=== PATIENT | female | born 1960 | race Caucasian/White ===

== ENCOUNTER 2020-05-26 16:52 | Emergency (ER) | payer OTHER, SELFPAY ==
--- NOTE | ~2020-05-26 | XR_ITS ---
EXAMINATION: XR ankle RT min 3V INDICATION: Right ankle pain TECHNIQUE: Four views of the right ankle are obtained. COMPARISON: None available FINDINGS: There is ankle soft tissue swelling. Bone alignment is normal. There is no fracture. A dors al calcaneal enthesophyte is noted. IMPRESSION: 1. Ankle soft tissue swelling without acute osseous abnormality. Reviewed, dictated and finalized at location B.
--- NOTE | ~2020-05-26 | XR_ITS ---
EXAMINATION: XR foot RT min 3V DATE: 05/26/2020 17:27 INDICATION: Lateral foot pain TECHNIQUE: Dorsoplantar, lateral, and 2 oblique views of the right foot were obtained. COMPARISON: None. FINDINGS: There is soft tissue swelling of the ankle. Bone alignment is normal. There is a questionab le cortical disruption at the lateral base of the fifth metatarsal. 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 A calcaneal enthesophyte is noted. IMPRESSION: 1. Possible nondisplaced fracture at the base of the fifth metatarsal. Reviewed, dictated and finalized at location B.
[2020-05-26 16:56] VITALS: BP 178/68; PULSE 64; RESP 16; TEMP 36.8; O2SAT 97
--- NOTE | 2020-05-26 17:04 | ED.GENADULT ---
HPI - General Adult General Chief complaint: Extremity Injury, Lower Stated complaint: Right ankle injury Time Seen by Provider: 05/26/20 17:04 Source: patient Mode of arrival: ambulatory Limitations: no limitations History of Present Illness HPI narrative: 59-year-old female patient presents to the [facility] with complaints of right foot and ankle pain for the past 5 days. Patient states this this past Friday she went for a hike and fell down a hill. Patient states she was trying to climb up the hill and fell down again. Patient states that since then she has been having pain to the right foot and ankle along with significant swelling. Patient states she has been icing and taking ibuprofen but denies wrapping it. Patient states she only elevates it after work. 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 Related Data Home Medications Medication Instructions Recorded Confirmed No Home Medications 05/26/20 05/26/20 Allergies Allergy/AdvReac Type Severity Reaction Status Date / Time Penicillins Allergy Intermediate Hives Verified 05/26/20 17:15 Review of Systems Review of Systems: Narrative: CONSTITUTIONAL: Denies fever, chills, or sweats. EYES: Denies visual changes, redness, or discharge. ENT: Denies rhinorrhea, congestion, sore throat, or otalgia. CARDIOVASCULAR: Denies chest pain, palpitations, or edema. RESPIRATORY: Denies cough or dyspnea. GASTROINTESTINAL: Denies abdominal pain, nausea, vomiting, or diarrhea. GENITOURINARY: Denies dysuria or hematuria. SKIN: Denies rash or itching. MUSCULOSKELETAL: Denies back pain, joint pain, or myalgia. Positive right foot and ankle pain NEUROLOGIC: Denies headache, numbness, or weakness. PSYCHIATRIC: Denies anxiety or depression. [facility] Past Medical History Medical History (Updated 05/26/20 @ 17:51 by HENRIQUE Miranda) Hypertension Surgical History Surgical History (Updated 05/26/20 @ 17:08 by HENRIQUE Miranda) H/O breast biopsy Comments At the time of my signature I agree with nursing past medical history, surgical, social, and family history. There is no relevant family history pertinent to the presenting complaint. Exam Narrative: Exam Narrative: GENERAL: Well-appearing, well-nourished, and in no acute distress. HEAD: Normocephalic, atraumatic. EYES: PERRLA and EOMI. ENT: Nares clear, no rhinorrhea or epistaxis. Mucous membranes moist. NECK: Supple. No lymphadenopathy CHEST: Clear to auscultation. No respiratory distress. HEART: Regular rate and rhythm. No murmur heard. Normal peripheral pulses. ABDOMEN: Soft, nontender, nondistended, normal active bowel sounds. EXTREMITIES: Patient able to bear weight and ambulate but has increased pain to the right foot and ankle. No surface trauma, ecchymosis, erythema, lesions, ulcers or break in skin integrity. There is slight bruising noted at the base of the third and fourth metatarsals. There is significant swelling and 2+ pitting edema. The edema extends all the way up to the knee. The R foot is without obvious asymmetry or deformity when compared to the L foot. No bony step-off, tender to palpation over the third and fourth metatarsal/toes, no tenderness noted over the midfoot or hindfoot or sole. Tenderness noted to the lateral malleolus area. Normal plantar/dorsiflexion, inversion/eversion. Distal motor and neurovascular status are intact SKIN: Warm, dry, no rash. NEURO: No focal deficits. Alert and oriented x3. Course Reevaluation(s) Reevaluation #1: Reevaluated patient and notified her that the x-ray does show possible fracture at the base of the fifth metatarsal. Discussed with patient we are can go ahead and put her in an Ortho shoe as well as wrap her foot and leg with an Demetrio wrap to help with the swelling. Discussed with her she needs to keep the foot and leg elevated as much as possible. She may take Tylenol and ibuprofen for pain and follow-up with orthopedic surge
== END 2020-05-26 17:55 | disposition home or self-care (01) ==
PROVIDERS: Emergency Provider Nurse Practitioner Family; PCP Internal Medicine
DX: S92.354A Nondisplaced fracture of fifth metatarsal bone, right foot, initial encounter for closed fracture (principal); W17.81XA Fall down embankment (hill), initial encounter; Y93.01 Activity, walking, marching and hiking; I10 Essential (primary) hypertension
CPT/HCPCS: 73610; 73630; 99214; G0463

== ENCOUNTER 2021-12-20 18:23 | Emergency (ER) | payer OTHER, SELFPAY ==
--- NOTE | ~2021-12-20 | XR_ITS ---
EXAMINATION: XR chest 2V DATE: 12/20/2021 18:55 INDICATION: Cough. Decreased lung sounds. TECHNIQUE: Frontal and lateral views of the chest were obtained. COMPARISON: None. FINDINGS: There is no pneumonia, pleural effusion, pneumothorax. Cardiomegaly is noted. IMPRESSION: 1. Cardiomegaly. Reviewed, dictated and finalized at location A. [employer] IMPRESSION: 1. Cardiomegaly.
[2021-12-20 18:26] VITALS: BP 189/81; PULSE 67; RESP 20; TEMP 36.7; O2SAT 98
--- NOTE | 2021-12-20 18:26 | ED.URI ---
HPI - URI/Sore Throat General Chief Complaint: Upper Respiratory Infection Stated Complaint: sore throat, dry cough Time Seen by Provider: 12/20/21 18:26 Source: patient and RN notes reviewed History of Present Illness HPI Narrative: patient is a 61-year-old female who presents to the Urgent Care with complaints of sore throat and dry cough. Patient denies any fever, nausea, vomiting. States that she has postnasal drainage and headache. States that her sore throat was worse when she woke up this morning and has since improved. Patient states her symptoms started on Friday. She has been taking Tylenol, DayQuil, ibuprofen. No other acute complaints. No acute distress noted. Patient aware of the plan of care. Some parts of this dictation were generated by voice recognition software and may contain typographical and/or grammatical inaccuracies. Related Data Home Medications Medication Instructions Recorded Confirmed rosuvastatin 10 mg tablet 10 mg PO DAILY 12/20/21 12/20/21 Allergies Allergy/AdvReac Type Severity Reaction Status Date / Time Penicillins Allergy Intermediate Hives Verified 12/20/21 18:24 Review of Systems Review of Systems: CONSTITUTIONAL: Denies fever, chills, or sweats. EYES: Denies visual changes, redness, or discharge. ENT: Reports of sinus congestion, postnasal drainage and sore throat CARDIOVASCULAR: Denies chest pain, palpitations, or edema. RESPIRATORY: reports of cough without dyspnea GASTROINTESTINAL: Denies abdominal pain, nausea, vomiting, or diarrhea. GENITOURINARY: Denies dysuria or hematuria. SKIN: Denies rash or itching. MUSCULOSKELETAL: Denies back pain, joint pain, or myalgia. NEUROLOGIC: Denies headache, numbness, or weakness. All other systems reviewed are negative, except as documented in HPI. [facility] Past Medical History Medical History (Updated 12/20/21 @ 19:03 by HENRIQUE Ha) Hypertension Surgical History Surgical History (System 08/22/20 @ 08:40 by Sara Mc) H/O breast biopsy Comments At the time of my signature, I reviewed and agree with the nursing past medical, surgical, social, and family history. There is no relevant family history pertinent to the patient complaint. Exam Narrative: GENERAL: This is a well-nourished, well-developed patient, in no apparent distress. HEAD: normocephalic, atraumatic. EYES: PERRL. Sclera clear/white. Vision is grossly intact. EARS: External ears normal, auditory canals clear and without drainage, TMs normal without perforation. Hearing grossly intact. NOSE: External nose normal with no obvious nasal discharge. Mild bilateral erythema nares with clear to yellow rhinorrhea THROAT: Mucous membranes moist, posterior pharynx clear. moderate postnasal drainage NECK: Neck supple CARDIOVASCULAR: Regular rate and rhythm without murmurs, gallops, or rubs. RESPIRATORY: Clear to auscultation. diminished left lower lobe SKIN: warm, intact with no suspicious lesions or rash, good texture and turgor. NEURO: awake, alert, and oriented to person, place and time. There were no obvious focal neurologic abnormalities. EXTREMITIES: No clubbing, cyanosis, or edema. Course Course Level of Care: Express Care Visit Vital Signs Vital signs: Vital Signs Temperature 98.1 F 12/20/21 18:26 Pulse Rate 67 12/20/21 18:26 Respiratory Rate 20 12/20/21 18:26 Blood Pressure 189/81 H 12/20/21 18:26 Pulse Oximetry 98 12/20/21 18:26 Oxygen Delivery Room Air 12/20/21 18:26 Temperature 98.1 F 12/20/21 18:26 Pulse Rate 67 12/20/21 18:26 Respiratory Rate 20 12/20/21 18:26 Blood Pressure 189/81 H 12/20/21 18:26 Pulse Oximetry 98 12/20/21 18:26 Oxygen Delivery Room Air 12/20/21 18:26 reviewed- Patient is informed that they may have pre-hypertension or hypertension based on a blood pressure reading in the department. I recommend the patient call the primary care provider listed on their
== END 2021-12-20 19:05 | disposition home or self-care (01) ==
PROVIDERS: Emergency Provider Nurse Practitioner Family; PCP Internal Medicine
DX: J40 Bronchitis, not specified as acute or chronic (principal); I10 Essential (primary) hypertension
CPT/HCPCS: 71046; 99213; G0463

== ENCOUNTER 2022-08-21 09:41 | Emergency (ER) | payer OTHER, SELFPAY ==
--- NOTE | 2022-08-21 09:42 | ED.FEMALEGU ---
HPI - Female Genitourinary General Chief complaint: Urogenital-Female Stated complaint: Poss UTI Time Seen by Provider: 08/21/22 09:42 Source: patient and RN notes reviewed History of Present Illness HPI Narrative: Patient is a 62-year-old female presents to urgent care with complaints of urinary urgency and frequency that started last night. Patient states symptoms are now resolved. Patient denies any hematuria, nausea, vomiting, abdominal pain or flank pain. Patient does not have recent recurrent UTIs. Patient is currently asymptomatic. Patient states that she did take Tylenol last night. No other acute complaints. No acute distress noted. Patient aware of the plan of care. Some parts of this dictation were generated by voice recognition software and may contain typographical and/or grammatical inaccuracies. Related Data Home Medications Medication Instructions Recorded Confirmed rosuvastatin 10 mg tablet 10 mg PO DAILY 12/20/21 08/21/22 Allergies Allergy/AdvReac Type Severity Reaction Status Date / Time bacitracin Allergy Intermediate Rash Verified 08/21/22 10:07 [From Neosporin ([id number])] neomycin Allergy Intermediate Rash Verified 08/21/22 10:07 [From Neosporin ([id number])] Penicillins Allergy Intermediate Hives Verified 08/21/22 10:06 polymyxin B Allergy Intermediate Rash Verified 08/21/22 10:07 [From Neosporin ([id number])] Review of Systems Review of Systems: CONSTITUTIONAL: Denies fever, chills, or sweats. EYES: Denies visual changes, redness, or discharge. ENT: Denies rhinorrhea, congestion, sore throat, or otalgia. CARDIOVASCULAR: Denies chest pain, palpitations, or edema. RESPIRATORY: Denies cough or dyspnea. GASTROINTESTINAL: Denies abdominal pain, nausea, vomiting, or diarrhea. GENITOURINARY: Recent urgency and frequency which has since resolved SKIN: Denies rash or itching. MUSCULOSKELETAL: Denies back pain, joint pain, or myalgia. NEUROLOGIC: Denies headache, numbness, or weakness. All other systems reviewed are negative, except as documented in HPI. [facility] Past Medical History Medical History (Updated 08/21/22 @ 10:35 by HENRIQUE Ha) Hypertension Surgical History Surgical History (System 08/22/20 @ 08:40 by Sara Mc) H/O breast biopsy Comments At the time of my signature, I reviewed and agree with the nursing past medical, surgical, social, and family history. There is no relevant family history pertinent to the patient complaint. Exam Narrative: GENERAL: This is a well-nourished, well-developed patient, in no apparent distress. HEAD: normocephalic, atraumatic. EYES: PERRL. Sclera clear/white. Vision is grossly intact. EARS: External ears normal NOSE: External nose normal with no obvious nasal discharge, nares without redness, no rhinorrhea. THROAT: Mucous membranes moist NECK: Neck supple, GASTROINTESTINAL: Abdomen soft, non-tender, nondistended. SKIN: warm, intact with no suspicious lesions or rash, good texture and turgor. NEURO: awake, alert, and oriented to person, place and time. There were no obvious focal neurologic abnormalities. EXTREMITIES: No clubbing, cyanosis, or edema. BACK: Negative CVA tenderness Course Course Level of Care: Express Care Visit Vital Signs Vital signs: Vital Signs Temperature 98.1 F 08/21/22 09:48 Pulse Rate 52 L 08/21/22 09:48 Respiratory Rate 14 08/21/22 09:48 Blood Pressure 183/76 H 08/21/22 09:48 Pulse Oximetry 98 08/21/22 09:48 Oxygen Delivery Room Air 08/21/22 09:48 Temperature 98.1 F 08/21/22 09:48 Pulse Rate 52 L 08/21/22 09:48 Respiratory Rate 14 08/21/22 09:48 Blood Pressure 183/76 H 08/21/22 09:48 Pulse Oximetry 98 08/21/22 09:48 Oxygen Delivery Room Air 08/21/22 09:48 Reviewed- Patient is informed that they may have pre-hypertension or hypertension based on a blood pressure reading in the department.
[2022-08-21 09:48] VITALS: BP 183/76; PULSE 52; RESP 14; TEMP 36.7; O2SAT 98
== END 2022-08-21 10:37 | disposition home or self-care (01) ==
PROVIDERS: Emergency Provider Nurse Practitioner Family; PCP Internal Medicine
DX: R39.15 Urgency of urination (principal); I10 Essential (primary) hypertension
CPT/HCPCS: 81003; 99212; G0463

== ENCOUNTER 2024-09-12 14:15 | Emergency (ER) | payer OTHER, SELFPAY ==
--- NOTE | ~2024-09-12 | XR_ITS ---
EXAM: XR ankle LT min 3V DATE: 09/12/2024 15:18 HISTORY: left lat ankle swelling, HX OF LOWER LAT LEG LESION . COMPARISON: None available. FINDINGS: Osteopenia. No fracture or dislocation. No lytic or blastic lesion. Joint spaces are maint ained. No erosion or periosteal change. Ankle soft tissue swelling. IMPRESSION: No acute osseous finding in the left ankle or left foot. Reviewed, dictated and finalized at location K.
--- NOTE | ~2024-09-12 | XR_ITS ---
EXAM: XR foot LT min 3V DATE: 09/12/2024 15:18 HISTORY: forefoot pain and swelling after walking . COMPARISON: None available. FINDINGS: Osteopenia. No fracture or dislocation. No lytic or blastic lesion. Joint spaces are maint ained. No erosion or periosteal change. Ankle soft tissue swelling. IMPRESSION: No acute osseous finding in the left ankle or left foot. Reviewed, dictated and finalized at location K.
--- OUTSIDE RECORDS SUMMARY | 2024-09-12 14:18 | XMS_ITS | Referral Summary ---
Author Organization [facility] Address [address] [place] [id number] Care Team Providers Care Anode Crew Supervisor Name Role Phone Vince Vargas MD Primary Care Provider + [phone] Deborah Andrade MD Unavailable [phone] Encounters Date Type Department Care Team Description 08/20/2024 9:45 AM CDT Office Visit [facility] [address] [place] [address] Vince Vargas MD Atopic neurodermatitis (Primary Dx); Class 1 obesity due to excess calories with serious comorbidity and body mass index (BMI) of 33.0 to 33.9 in adult 07/20/2024 Telephone [facility] [address] [place] [address] Vince Vargas MD referral to vascular 06/28/2024 9:00 AM CDT Office Visit [facility] [address] [place] [address] Vince Vargas MD Class 1 obesity due to excess calories with serious comorbidity in adult, unspecified BMI (Primary Dx); Mixed hyperlipidemia 06/16/2024 8:45 AM CDT Office Visit [facility] [address] [place] [address] Deborah Andrade MD Encounter for gynecological examination without abnormal finding (Primary Dx); Encounter for screening mammogram for breast cancer from Last 3 Months Allergies Active Allergy Reactions Criticality Noted Date Comments Bacitracin Other (See comments) Reaction: skin irritation, , Reaction: skin irritation, Neomycin Other (See comments) Reaction: skin irritation, Penicillins Hives,Rash Medium Reaction: Hives, Polymyxin B Other (See comments) Reaction: skin irritation, Medications cholecalciferol (VITAMIN D-3) 1,000 unit Take 5 tablet/capsule (5,000 Units total) by mouth daily Active L. gasseri-B. bifidum-B longum 1.5 billion cell capsule Take by mouth Active rosuvastatin (CRESTOR) 10 mg tabletIndications: Mixed hyperlipidemia TAKE 1 TABLET DAILY 90 tablet 1 04/05/19 25 Active CLOBETASOL PROPIONATE, BULK, MISC Use topically as directed per dermatology Active semaglutide (OZEMPIC) 0.25 mg or 0.5 mg (2 mg/3 mL) pen injector injectionIndicatio ns:Class 1 obesity due to excess calories with serious comorbidity and body mass index (BMI) of 31.0 to 31.9 in adult Inject 0.5 mg under the skin every 7 days 3 mL 06/29/19 25 Active Additional Information Patient not taking.Reason: Cost (not covered by insurance), Reported on 08/20/2024 Active Problems Problem Noted Date Diagnosed Date Atopic neurodermatitis 08/20/2024 Assessment & Plan (08/20/2024 5:04 PM CDT): Lesion in the back of her ankle approximately 3 cm -5 cm in diameter consistent with atopic dermatitis she advised me she saw her a community health planning director who placed her on clobetasol she took this for several months without improvement. . Reassured patient this is not a life-threatening or serious problem for her. Not going to totally go away clobetasol as good as any topical medications.. Upper respiratory infection, acute 11/19/2022 Assessment & Plan (11/19/2022 8:58 AM CDT): Symptoms for 1 week. Tested negative for COVID at home. No acute findings on exam or sinus tenderness. Likely viral, Rxd tessalon perles as needed for cough. Discussed antihistamine use (zyrtec/andrea) and /or benedryl to help dry up mucous. Tylenol/Ibuprofen as needed for pain. Increase fluids (water) Cool mist humidifier at night Use sinus rinses to help flush bacteria and help with congestion. Encouraged honey, marshmallows, gelatin, or chloraseptic to help coat throat. If not feeling better by Friday, bean picker machine operator Doxycycline and start it as instructed. Mixed hyperlipidemia 10/15/2022 Assessment & Plan (10/27/2023 1:28 PM CDT): Lipid profile in therapeutic range. Patient's BMI is 30. Renal functions are excellent patient will remain on rosuvastatin 10 mg daily Component Latest Ref Rng 10/20/2023 Cholesterol 30 - 199 mg/dL 126 Triglycerides <=149 mg/dL 53 HDL Cholesterol >=40 mg/dL 36 (L) LDL Cholesterol Calc <=129 mg/dL 78 Non-HDL Cholesterol mg/dL 90 Chol/HDL ratio 4 Legend: (L) Low Assessment & Plan (04/15/2023 4:48 PM CAFETERIA FOOD SERVER): Patient is tolerating medications no change in therapy Component Latest Ref Rng 12/08/2021 10/15/2022 Cholesterol 30 - 199 mg/dL 107 123 Triglycerides <=149 mg/dL 53 51 HDL Cholesterol >=40 mg/dL 33 (L) 36 (L) LDL Cholesterol Calc <=129 mg/dL 63 77 Non-HDL Cholesterol mg/dL 74 87 Chol/HDL ratio 3 3 Legend: (L) Low Blood pressure elevated without history of HTN 0 10/24/2020 Assessment & Plan (10/27/2023 1:32 PM CDT): Blood pressure today 142/86. Check blood pressure at home a few days ago blood readings 117/80. No medication given. Assessment & Plan (04/15/2023 4:46 PM CAFETERIA FOOD SERVER): Pressure well controlled patient is tolerating medications no change in therapy. She has no symptoms referable to hypertension. Assessment & Plan (10/15/2022 1:10 PM CDT): Blood pressure results from home were excellent no change in therapy Assessment & Plan (10/08/2021 11:13 AM CDT): Blood pressure log sheet reviewed he% of her blood pressure readings were normal. No systolic readings were above 1 6 no diastolic readings were above 92. Back out of 23 readings only 1 diastolic reading was 90. Advised patient going to continue to observe medication given at this time. Patient's BMI is 31.79 will check a BMP fasting lipid profile Assessment & Plan (10/24/2020 6:01 PM CDT): Patient has lost weight blood pressure is excellent in office overall out office. She has never really been treated for hypertension with medications. Continue absurd Class 1 obesity due to exces s calories with serious comorbidity in adult 12/03/2017 Assessment & Plan (08/20/2024 5:03 PM CDT): Patient given him information regarding Wegovy a coupon in the text number that will allow her to get a 290 dollars a month during the month of August.. Given instructions to contact [facility] regarding this. Her insurance would not cover Wegovy. When she lets us know if she is going to obtain this product we can send a prescription to [facility] to start Wegovy Assessment & Plan (06/28/2024 5:43 PM CDT): BMI 33 height 5 ft 7 weight 211 lb patient has been trying to diet exercise not successful so far. Just resume exercising we discussed that some people were exercise and still not lose weight discussed the fact that definition obesity body mass greater than 30. Comorbidities hyperlipidemia she does not have hypertension. Discuss GLP 1 patient's had looked into the insurance coverage would go away was not covered Zepbound was uncovered on my checking. I send Rx for Ozempic it was not rejected.. Discussed side effects regarding medication medicines covered I will see her in 2 months Assessment & Plan (10/15/2022 1:11 PM CDT): Patient wanted a prescription for phentermine. Advised this medication rarely using adult recommended for her. Discuss her weight her body mass index is 31.79 she has persons in her family her overweight. Blood pressures have been good at home and lipid profile indicates good control. She is overweight/obese but I did not think it justified taken risks on phentermine advised her regarding the medication Wegovy. She Can check on line with the will be covered. Assessment & Plan (10/24/2020 6:02 PM CDT): 13 lb weight loss over last 6 months by dieting. Body mass index is 31.48 present Assessment & Plan (04/18/2020 12:25 PM CAFETERIA FOOD SERVER): Patient has gained 21 lb in the past 2 years BMI 33.52 recommend patient's it at exercise 150-200 minutes per week. Patient now has hypertension. Assessment & Plan (12/03/2017 4:19 PM CDT): Patient aggressively dieting working out exercising least 150-200 minutes per week. Her body mass index remains in the obesity category. Today is 31.95 patient is given a prescription for Contrave 80/90 mg 1 tablet daily x1 week 1 twice a day 2nd week. I did not write prescription beyond this. Time I do not have his insurance will pay for and I have had people have success at this 2nd dosage without going all way up to 4 tablets a day. This plan of treatment is discussed with patient. History of skin cancer in adulthood 12/03/2017 Assessment & Plan (12/03/2017 4:21 PM CDT): Patient follows up annually with Dermatology. History of colon polyps 05/22/2017 Overview (05/22/2017): Added automatically from request for surgery [id number] Assessment & Plan (10/27/2023 1:28 PM CDT): Five year follow-up colonoscopy completed patient had a the polyp found recommendations repeat colonoscopy in 5 years. Path Report reviewed Assessment & Plan (12/03/2017 4:20 PM CDT): Colonoscopy completed June 2017 recommend repeat colonoscopy in 5 years by the special effects artist. Annual physical exam 08/03/2016 Assessment & Plan (10/27/2023 1:30 PM CDT): History and physical completed patient's health risk assessment health maintenance reviewed and addressed. Patient did get a follow-up colonoscopy results reviewed. Patient's weight is stable body mass index of 30. Does not identify any new health problems. She does see Dermatology on an annual basis secondary to history of skin cancer. Assessment & Plan (10/15/2022 1:09 PM CDT): History and physical completed patient's health risk assessment health maintenance reviewed in addressed. I emphasized shingles vaccine. Patient made aware new COVID vaccine will be available soon. She is 60 years old she is no concurrent health problems that make her especially high risk RSV. Assessment & Plan (10/08/2021 11:12 AM CDT): History and physical completed patient's health risk assessment health maintenance reviewed in addressed. Tdap was given today. Patient has opinion she had her shingles vaccine completed a local pharmacy. Past patient contacted local pharmacy and sent a copy the results of if she has completed. Patient is scheduled for mammogram November . gynecological exam is current. Assessment & Plan (04/18/2020 12:22 PM CAFETERIA FOOD SERVER): History and physical completed patient's health risk assessment health maintenance reviewed in addressed.. Recommend patient take advantage COVID vaccine offered here to AMS less than 65 she has medical conditions obesity and hypertension. Assessment & Plan (12/03/2017 4:21 PM CDT): History and physical completed patient advised me she sees his community health planning director twice a year for a total skin inspection she has a history of skin cancer in the past. Lipid profile CBC ordered. Assessment & Plan (08/06/2016 1:10 PM CDT): CBC, CMP, lipid profile will be done. This patient was under the impression that a colonoscopy was last year. Reviewed the NextGen chart was done in 2012. Repeat colonoscopy in 2018. Patient informs me she was advised to get a repeat colonoscopy in 5 years. Resolved Problems Problem Noted Date Diagnosed Date Resolved Date Hypertension, essential 04/18/202010/11 Assessment & Plan (04/18/2020 12:26 PM CAFETERIA FOOD SERVER): Blood pressure 156/90 blood pressure check x2. Patient is given a blood pressure log sheet instructions of in least 20 blood pressure readings morning evening randomly with the next 30 days and mail results to me. Anticipate blood pressures out office about a confirm elevated blood pressures same is office visit did. Schedule appointment back in 6 months anticipate I will be seeing her early a medication added to her regimen. Will add lipid profile BMP on upcoming visit. Morbid obesity with BMI of 40.0-44.9, adult 04/18/2020 04/18/2020 Sore throat 03/04/2017 10/24/2020 Assessment & Plan (03/04/2017 6:15 PM CAFETERIA FOOD SERVER): Patient developed sore throat the last 12-24 hours. No fever chills no night sweats. His small amount of coughing patient's exam was unremarkable. No exudate no redness on throat exam he had ears eyes nose and throat normal strep test was negative patient advised supportive treatment Tylenol Advil as needed plenty of fluids throat lozenges. Contact with and (suspected) exposure to other communicable diseases 08/03/2016 03/04/2017 Assessment & Plan (08/06/2016 11:00 AM CDT): Hepatitis C antibody will be ordered as recommended by CDC. HIV screening was done a few years ago for life insurance policy results was negative and will not be repeated today.. Immunizations Immunization Administration Dates Next Due Influenza, Quadrivalent, Olga l Culture-based MDCK, Preservative Free, Antibiotic Free, Intramuscular 12/15/2022 Influenza, Quadrivalent, Spl it, Preservative Free, Intramuscular 01/27/2022,11/25/2020,11/14/2019,12/02 Influenza, Trivalent, Preser vative Free, Intramuscular 10/27/2023 Tdap 10/08/2021 ZOSTER Recombinant 04/01/2020,01/15/2020 Social History Tobacco Use Types Packs/Day Years Used Date Smoking Tobacco: Former Cigarettes 2 30 1 978 - 2007 Smokeless Tobacco: Former Tobacco Cessation:Counseling Given: Not Answered AUDIT-C Answer Date Recorded Q1: How often do you have a drink containing alc ohol? Monthly or less 09/13/2022 Q2: How many drinks containi ng alcohol do you have on a typical day when you are drinking? 1 or 2 09/13/2022 Q3: How often do you have si x or more drinks on one occasion? Never 09/13/2022 PHQ-2 Answer Date Recorded PHQ-2 Total Score (If total score is 3 or more points, staff should administer the PHQ-9) 0 08/20/2024 Personal Safety Answer Date Recorded Have you ever been in or are you currently in a harmful physical or emotional relationship or is someone making you feel afraid or unsafe? Denies 09/16/2022 Comments No Sex and Gender Information Value Date Recorded Sex Assigned at Not on file Legal Sex Female 12:45 AM CAFETERIA FOOD SERVER Gender Identity Not on file Sexual Orientation Not on file Occupation Industry Job Start Date Job End Date Retired Not on file Not on file Not on file Last Filed Vital Signs Vital Sign Reading Time Taken Comments Blood Pressure 142/86 08/20/2024 9:53 AM CDT Pulse 89 08/20/2024 9:53 AM CDT Temperature 36.4 C (97.5 F) 08/20/2024 9:53 AM CDT Respiratory Rate 16 08/20/2024 9:53 AM CDT Oxygen Saturation 93% 08/20/2024 9:53 AM CDT Inhaled Oxygen Concentration - - Weight 96.3 kg (212 lb 3.2 oz) 08/20/2024 9:53 A M CDT Height 170.2 cm (5' 7) 08/20/2024 9:53 AM CDT Body Mass Index 33.24 08/20/2024 9:53 AM CDT Plan of Treatment Not on file Procedures Procedure Name Priority Date/Time Associated Diagnosis Comments SCREENING MAMMOGRAM BILATERAL W BRYAN Schedule Routine, Read Routine (OP Routine) 01/17/2024 7:51 AM CAFETERIA FOOD SERVER Screening mammogram, encounter for PAP AND HIGH RISK HPV, REFLEX TO GENOTYPING Routine 04/23/2023 8:35 AM CDT Screening for malignant neoplasm of the cervix COLONOSCOPY 09/16/2022 8:31 AM CDT HEPATITIS C ANTIBODY Routine 08/12/2016 9:30 AM CDT from Last 3 Months or Most Recently Relevant to Health Maintenance Results * Screening Mammogram Bilateral W Bryan (01/17/2024 7:51 AM CAFETERIA FOOD SERVER) Anatomical Region Laterality Modality Breast Bilateral Mammography 01/18/2024 8:56 PM CAFETERIA FOOD SERVER Impressions 01/18/2024 8:56 PM CAFETERIA FOOD SERVER There is no mammographic evidence of malignancy. A 1 year screening mammogram is recommended. BI-RADS: 2 - Benign. The patient has been or will be contacted. The patient will be entered into a reminder system with a target due date of 1 year for her next mammogram. Electronically signed by: Chrissy Martinez M.D. Narrative 01/18/2024 8:56 PM CAFETERIA FOOD SERVER EXAMINATION: SCREENING MAMMOGRAM BILATERAL W BRYAN ORDERING HEALTHCARE PROVIDER: SELF SCREENING MAMMOGRAM HISTORY: Routine screening mammography. COMPARISON: 12/07/2022, 10/19/2021, 11/29/2019, 07/29/2018, 07/18/2017, 06/17/2015 TECHNIQUE: CC and MLO views of the bilateral breasts were obtained with digital technique using breast tomosynthesis with C view. Computer aided detection was utilized. FINDINGS: DENSITY: There are scattered areas of fibroglandular density. BREASTS: There is a postbiopsy clip in the left breast. There are stable calcifications in the right breast. There are no suspicious masses, suspicious calcifications, or other suspicious findings in either breast. There has been no suspicious interval change. us Self Screening Mammogram IMG MAMMO PROCEDURES Fi nal Result * Pap and High Risk HPV and Genotyping (Cytology Component) (04/23/2023 8:35 AM CDT) Thin prep (Pap test) 04/23/2023 8:35 AM CDT 04/23/2023 8:35 AM CDT Narrative PATHOLOGY CH - 04/25/2023 2:27 PM CDT [facility] Department of Pathology [address] [place] [address] Final Report with Addendum Note to Patients: This report may contain a detailed description of human tissue sent by a health care provider to the laboratory for pathologic evaluation. The content of this report is essential for diagnosis and may provide important critical findings. This information may be unfamiliar to patients to review without a medical professional present. It is advised that the patient review this report in the presence of a health care provider who can answer questions and explain the details. Patient Name: KALEIGH BUCKLEY Address: [address] [place] [address]- Gender: F : 1960 (Age: 62) Service: Location: [facility] #: [id number] Patient Type: SPECIMEN Taken: 04/23/2023 Received: 04/23/2023 Accessioned:: 04/24/2023 Reported: 04/25/2023 Physician(s): MD Deborah Mc MD Diagnosis: SOURCE OF SPECIMEN SCREENING THIN PREP IMAGED PAP w/ HPV: STATEMENT OF ADEQUACY - Satisfactory for evaluation; endocervical/transformation zone component present GENERAL CATEGORIZATION: - Negative for intraepithelial lesion or malignancy INTERPRETATION: - Numerous inflammatory cells present BERNARDO Quesada(ASCP) Report Electronically Reviewed and Signed Out By BERNARDO Quesada(ASCP) 04/25/2023 14:27:10Addenda: HPV Test Interpretation (Normal-Negative for High Risk HPV) HPV HR 16- Not detected HPV HR 18-Not detected HPV HR non 16/18- Not detected Interpretive Data Nucleic acid amplification for detection of high-risk Human Papilloma virus (HPV) is performed by the [employer] 6800 HPV test. This assay specifically detects HPV- 16 and HPV-18 genotypes. The following HPV genotypes are detected as high-risk HPV: HPV-31, 33, 35, 39, 45, 51, 52, 56, 58, 59, 66, and 68. This assay has been approved by the [place] Food and Drug Administration for detection of HPV in cervical specimens collected by a physician using an endocervical brush/spatula or cervical broom and placed in the ThinPrep Pap Test PreservCyt collection containers. The performance characteristics of this test have been verified by the [facility] Molecular Infectious Disease laboratory. Correlate with reported cytology results, as applicable. Interpretive data last revised 22 BERNARDO Mir(ASCP)Report Electronically Reviewed and Signed Out By BERNARDO Mir(ASCP) 04/25/2023 12:44:19 Specimen(s) Received: A: SCREENING THIN PREP IMAGED PAP w/ HPV Clinical History: The Pap test is a screening test used to aid in the detection of cervical cancer and its precursors. It should not be the sole means by which malignant and premalignant lesions are diagnosed. Both false negative and false positive results may occur. It also has poor sensitivity for the detection of endometrial lesions and should not be used to evaluate suspected endometrial abnormalities. For these reasons it is most important to obtain Pap tests at regular intervals. The performance characteristics of some immunohistochemical stains, fluorescence in-situ hybridization tests and immunophenotyping by flow cytometry cited in this report (if any) were determined by the Surgical Pathology Department at [facility] as part of an ongoing ethanol quality leader program and in compliance with federally mandated regulations drawn from the Clinical Laboratory Improvement Act of 1988 (CLIA '88). Some of these tests rely on the use of analyte specific reagents and are subject to specific labeling requirements by the [place] Food and Drug Administration. Such diagnostic tests may only be performed in a facility that is certified by the Department of Health and Human Services as a high complexity laboratory under CLIA '88. The FDA has determined that such clearance or approval is not necessary. This test is used for clinical purposes. It should not be regarded as investigational or for research. Nevertheless, federal rules concerning the medical use of analyte specific reagents require that the following disclaimer be attached to the report: This test was developed and its performance characteristics determined by the Surgical Pathology Department [facility]. It has not been cleared or approved by the U. S. Food and Drug Administration. Deborah Andrade MD LAB CYTOLOGY ORDERABL ES Final Result PATHOLOGY [address] [place] [address] * COLONOSCOPY (09/16/2022 8:31 AM CDT) Anatomical Region Laterality Modality Other Narrative Procedure Note Bryce Springer MD - 09/16/2022 8:[address] [facility] Patient Name: Kaleigh Buckley Procedure Date: 09/16/2022 8:31 AM Date of : 1960 Admit Type: Outpatient Age: 62 Gender: Female Attending MD: Bryce Springer M.D. Room: [facility] ENDOSCOPY ROOM 2 Note Status: Finalized Patient Profile: This is a 62 year old female. Refer to note inpatient chart for documentation of history and physical. Procedure: Colonoscopy Indications: High risk colon cancer surveillance: Personalhistory of colonic polyps, Last colonoscopy: June 2017 Referring MD: Vince Vargas M.D. Providers: Bryce Springer M.D. Impression: - Hemorrhoids found on perianal exam. - One 5 mm polyp in the sigmoid colon, removed witha cold snare. Resected and retrieved. - The examination was otherwise normal. Recommendation: - Discharge patient to home. - Resume previous diet. - Continue present medications. - Await pathology results. - Repeat colonoscopy in 5 years for surveillance. - Return to primary care physician as previously scheduled. Medicines: Propofol per Anesthesia Complications: No immediate complications. Estimated Blood Loss: Estimated blood loss: none. Procedure: Pre-Anesthesia Assessment: - This assessment was completed [Time ofAssessment] prior to the administration of sedation. The benefits, risks and alternatives of theprocedure and sedation were discussed and informed consentwas obtained. All questions were answered. Please referto the signed informed consent document in the medical record. The bowel preparation used was Miralax and bisacodyl tablets via split dose instruction. The scope was passed under direct vision. TheColonoscope [id number] was introduced through the anus and advanced to the the cecum, identified by appendiceal orifice and ileocecal valve. The colonoscopy was performed without difficulty. The patient tolerated the procedure well. The qualityof the bowel preparation was good. The ileocecalvalve, appendiceal orifice, and rectum werephotographed. Findings: Hemorrhoids were found on perianal exam. A 5 mm polyp was found in the sigmoid colon. The polyp was sessile.The polyp was removed with a cold snare. Resection and retrieval were complete. Verification of patient identification for the specimen was done by the physician and nurse using the patient's name and birthdate. Estimated blood loss was minimal. The exam was otherwise without abnormality. Electronically signed by Bryce Springer M.D. Bryce Springer M.D. 09/16/2022 10:34:36 AM Number of Addenda: 0 Note Initiated On: 09/16/2022 8:31 AM Procedure Code(s): --- Professional --- 84901, Colonoscopy, flexible; with removal of tumor(s), polyp(s), or other lesion(s) by snare technique --- Technical --- 23499, Colonoscopy, flexible; with removal of tumor(s), polyp(s), or other lesion(s) by snare technique Diagnosis Code(s): --- Professional --- D12.5, Benign neoplasm of sigmoid colon K64.9, Unspecified hemorrhoids Z86.010, Personal history of colonic polyps --- Technical --- D12.5, Benign neoplasm of sigmoid colon K64.9, Unspecified hemorrhoids Z86.010, Personal history of colonic polyps CPT copyright 2020 [employer]. All rights reserved. The codes documented in this report are preliminary and upon wiper blender reviewmay be revised to meet current compliance requirements. Recognized by the [employer] for promoting quality in endoscopy Bryce Springer MD ENDOSCOPY PROCEDURES Final Re sult * Hepatitis C antibody (08/12/2016 9:30 AM CDT) Hep C Ab Negative Negative ROSA Blood specimen (specimen) 08/12/2016 9:30 AM CDT 08/12/2016 4:00 PM CDT Vince Vargas MD LAB MICROBIOLOGY - GENERAL ORDERABLES Edited Result - Final ROSA [id number] [address] Department [place] [address] from Last 3 Months or Most Recently Relevant to Health Maintenance Insurance [facility]PP[facility] Address: [facility] [address] [place] [address] [facility]PPO Address: [address] [address] [place] [address] [facility]O Address: [place] [address] Advance Directives For more information, please contact: [phone] * Full Code (Latest Code Status on File) Date Activated Date Inactivated Comments 09/16/2022 8:50 AM 09/16/2022 3:18 PM * Full Code Date Activated Date Inactivated Comments 09/16/2022 8:50 AM 09/16/2022 8:50 AM * Full Code Date Activated Date Inactivated Comments 06/23/2017 9:29 AM 06/23/2017 2:00 PM Care Teams Anode Crew Supervisor Relationship Specialty Start Date End Date Vince Vargas MD PCP - General 09/22/07 Deborah Andrade MD [address] [place] [address] Sales Operations Coordinator Obstetrics and Gynecology 11/10/21
--- OUTSIDE RECORDS SUMMARY | 2024-09-12 14:18 | XMS_ITS | Encounter Summary ---
Author Organization [facility] Healthcare Address [address] [place] [address] Care Team Providers Care Metal Plater Name Role Phone Vince Vargas MD Primary Care Provider + [phone] Deborah Andrade MD Unavailable [phone] Encounter Details Date Type Department Care Team (Late st Contact Info) Description 07/23/2019 Telephone [facility] Center [address] [place] [address] Peace Hayes RDMS Social History Tobacco Use Types Packs/Day Years Used Date Smoking Tobacco: Former Smokeless Tobacco: Former PHQ-2 Answer Date Recorded PHQ-2 Score 0 10/03/2018 Comments No Sex and Gender Information Value Date Recorded Sex Assigned at Not on file 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
--- OUTSIDE RECORDS SUMMARY | 2024-09-12 14:18 | XMS_ITS | Encounter Summary ---
Author Organization [facility] Address [address] [place] [address] Phone Care Team Providers Care Hyster Machine Operator Name Role Phone Vince Vargas MD Primary Care Provider + [phone] Deborah Andrade MD Unavailable [phone] Encounter Details Date Type Department Care Team (Late st Contact Info) Description 07/01/2018 Orders Only [facility] [address] [place] [address] Scanning, Provider Social History Tobacco Use Types Packs/Day Years Used Date Smoking Tobacco: Former Smokeless Tobacco: Former Comments No Sex and Gender Information Value Date Recorded Sex Assigned at Not on file 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 Gender Identity Not on file Sexual Orientation Not on file documented as of this encounter Plan of Treatment Not on file documented as of this encounter Procedures Procedure Name Priority Date/Time Associated Diagnosis Comments SCAN - LABS 07/01/2018 documented in this encounter Results * SCAN - LABS (07/01/2018) us Provider Scanning Final Result documented in this encounter Visit Diagnoses Not on filedocumented in this encounter Care Teams Hyster Machine Operator Relationship Specialty Start Date End Date Vince Vargas MD PCP - General 09/22/07 Deborah Andrade MD [address] [place] [address] Solar Designer/Installer Obstetrics and Gynecology 11/10/21 documented as of this encounter
--- OUTSIDE RECORDS SUMMARY | 2024-09-12 14:18 | XMS_ITS | Continuity of Care Document ---
Author Organization [facility] Address [address] [facility] [address] [place] [address] Phone Care Team Providers Care Chassis Engineer Name Role Phone Bella Rubin PIPER Unavailable Unavailable Procedures Procedure Date Manual Therapy Therapeutic Activities Therapeutic Exercise Progress Note Neuromuscular Re-Ed Neuromuscular Re-Ed Therapeutic Activities Manual Therapy Therapeutic Exercise Therapeutic Exercise Neuromuscular Re-Ed Manual Therapy Therapeutic Activities Hot or Cold Pack Therapeutic Activities Therapeutic Exercise Neuromuscular Re-Ed Manual Therapy Therapeutic Exercise Therapeutic Activities Manual Therapy Hot or Cold Pack Therapeutic Activities Therapeutic Exercise Manual Therapy Neuromuscular Re-Ed Manual Therapy Therapeutic Exercise Manual Therapy Therapeutic Exercise Therapeutic Activities PT Evaluation Low Complexity Therapeutic Exercise Manual Therapy Progress Note Therapeutic Exercise Neuromuscular Re-Ed Therapeutic Exercise Neuromuscular Re-Ed THERAPEUTIC EXERCISES NEUROMUSCULAR RE-ED MANUAL THERAPY THERAPEUTIC EXERCISES NEUROMUSCULAR RE-ED MANUAL THERAPY THERAPEUTIC EXERCISES NEUROMUSCULAR RE-ED MANUAL THERAPY PT Evaluation Low Complexity THERAPEUTIC EXERCISES Advance Directives Directive Yes / No Effective Date File Name No Information Encounters Encounter Description Practice Location Reason(s) For Visit Diagnoses Date Provider Providers Copied on Encounter [facility] [place] [address], [id number], tel:[phone] [place] No Information [address] [facility] [place] [address], [id number], tel:[phone] [place] No Information [address] [facility] [place] [address], [id number], tel:[phone] [place] No Information [address] [facility] [place] [address] [place] [address], [id number], tel:[phone] [place] No Information 1 Michael Moyer. [address] [facility], [address], [address], . tel:[phone] [facility] [place] [address], [id number], tel:[phone] [place] No Information [address] [facility] [place] [address] [place] [address], [id number], tel:[phone] [place] No Information 1 Michael Moyer. [address] [place] [address], [address], [place], [place], [facility], [place]. tel: [phone] [address], [place], [place], [id number], tel:[phone] [facility] No Information June- 1 Michael Moyer. [address] [place] [address], [address], [place], [facility], [place]. tel: [phone] [address], [place], [place], [id number], [place] tel:[phone] [facility] No Information June-2 0 1 Bella Rubin. . [address], [place], [place], [id number], tel:[phone] [place] No Information 1 Michael Moyer. [address] [place] [address], [address], [place], [facility], [place]. tel: [phone] [address], [place], [place], [id number], [place] tel:[phone] [facility] No Information 1 Bella Rubin. . [facility] [address], [place], [place], [id number], [place] tel:[phone] [facility] No Information 7 Richie Bravo. [address] [place] [address], [address], [place], [facility], [place]. tel: [phone] [address], [place], [place], [id number], [place] tel:[phone] [place] No Information 7 Richie davidson Lawrence. [address] [place] [address], [address], [place], [facility], [place]. tel: [phone] [address], [place], [place], [id number], [place] tel:[phone] [place] No Information 2 0 7 Escobar-Ronan es Lawrence. [address] [place] [address], [address], [place], [facility], . tel: [phone] [facility] [address] [place] [address] [address], [place], [place], [id number], tel:[phone] [facility] No Information 0 6 7 Escobar-Ronan es Lawernce. [address] [place] [address], [facility] [address] [address], . tel: [phone] [address], [place], [place], [id number], tel:[phone] [facility] No Information Apr-3 7 Escobar-Ronan es Lawrence. [address] [place] [address], [facility] [address] [address], . tel: [phone] [facility] [address] [place] [address], [place], [place], [id number], tel:[phone] [facility] Pelvic and perineal painMuscle weakness (generalized)Urge incontinenceStress incontinence (female) (male)Unspecified dyspareunia 3 7 Escobar-Ronan es Lawrence. [address] [place] [address], [facility] [address] [address], . tel: [phone] Family History Family Member Type Diagnosis Age At Onset No Information Payers Payer name Insurance type Covered constitution party ID Idris melvin(s) [facility] CI [id number] Social History Type Description Quantity Date Captured Comments Sex Female Smoking Status No Information Chief Complaint And Reason For Visit No Information Reason For Referral Reason For Referral No Information History Of Present Illness Encounter Date Complaint History Of Prese nt Illness No Information Functional Status Date Functional Assessmen t No Information Instructions Date Instruction Additional Infor mation Giving encouragement to exercise Related to Overweight Giving encouragement to exercise Related to Overweight Assessments Type Assessment Date No Information Patient Care Teams Name Effective Dates (start - stop) Status Members No Information
--- OUTSIDE RECORDS SUMMARY | 2024-09-12 14:18 | XMS_ITS | Clinical Summary ---
Author Organization [facility] Address [address] [place] [address] Care Team Providers Care Instrument Operator Name Role Phone Vince Vargas MD Primary Care Provider [phone] Deborah Andrade MD Unavailable [phone] Allergies Active Allergy Reactions Criticality Noted Date [...] she advised me she saw her a cable splicer assistant who placed her on clobetasol she took [...] throat. If not feeling better by Friday, leaf size picker Doxycycline and start it as instructed. Mixed [...] Low Assessment & Plan (04/15/2023 4:48 PM EX CHEF): Patient is tolerating medications no change in [...] given. Assessment & Plan (04/15/2023 4:46 PM EX CHEF): Pressure well controlled patient is tolerating medications [...] month of August.. Given instructions to contact Greta regarding this. Her insurance would not cover [...] present Assessment & Plan (04/18/2020 12:25 PM EX CHEF): Patient has gained 21 lb in the [...] (05/22/2017): Added automatically from request for surgery [id number] Assessment & Plan (10/27/2023 1:28 PM CDT): Five year follow-up colonoscopy completed patient had a the polyp found recommendations repeat colonoscopy in 5 years. Path Report reviewed Assessment & Plan (12/03/2017 4:20 PM CDT): Colonoscopy completed June 2017 recommend repeat colonoscopy in 5 years by the mounted police. Annual physical exam 08/03/2016 Assessment & Plan [...] has completed. Patient is scheduled for mammogram week of November . gynecological exam is current. Assessment & Plan (04/18/2020 12:22 PM EX CHEF): History and physical completed patient's health risk assessment health maintenance reviewed in addressed.. Recommend patient take advantage COVID vaccine offered here to AMS less than 65 she has medical conditions obesity and hypertension. Assessment & Plan (12/03/2017 4:21 PM CDT): History and physical completed patient advised me she sees his cable splicer assistant twice a year for a total skin [...] 04/18/202010/11 Assessment & Plan (04/18/2020 12:26 PM EX CHEF): Blood pressure 156/90 blood pressure check x2. [...] 10/24/2020 Assessment & Plan (03/04/2017 6:15 PM EX CHEF): Patient developed sore throat the last 12-24 [...] negative and will not be repeated today.. Encounters Date Type Department Care Team Description 08/20/2024 9:45 AM CDT Office Visit [facility] [address] [place] [address] Vince Vargas MD Atopic neurodermatitis (Primary Dx); Class 1 obesity due to excess calories with serious comorbidity and body mass index (BMI) of 33.0 to 33.9 in adult 07/20/2024 Telephone [facility] [address] [place] [address] Vince Vargas MD referral to vascular 06/28/2024 9:00 AM CDT Office Visit [facility] [address] [place] [address] Vince Vargas MD Class 1 obesity due to excess calories with serious comorbidity in adult, unspecified BMI (Primary Dx); Mixed hyperlipidemia 06/16/2024 8:45 AM CDT Office Visit [facility] [address] [place] [address] Deborah Andrade MD Encounter for gynecological examination without abnormal finding (Primary Dx); Encounter for screening mammogram for breast cancer from Last 3 Months Immunizations Immunization Administration Dates Next Due Influenza, Quadrivalent, Olga l Culture-based MDCK, Preservative Free, Antibiotic Free, Intramuscular 12/15/2022 Influenza, Quadrivalent, Spl it, Preservative Free, Intramuscular 01/27/2022,11/25/2020,11/14/2019,12/02 Influenza, Trivalent, Preser vative Free, Intramuscular 10/27/2023 Tdap 10/08/2021 ZOSTER Recombinant 04/01/2020,01/15/2020 Surgical History Surgery Date Site/Laterality Comments TUBAL LIGATION 02/11/1992 - 02/09/1993 Bilateral tubal ligation SECTION 02/10/1986 - 02/09/1987 section BREAST BIOPSY 02/10/2003 - 02/10/2004 Left benign BREAST BIOPSY 02/11/2008 - 02/09/2009 Right benign COLONOSCOPY 06/23/2017 COLONOSCOPY 09/16/2022 Medical History Medical History Date Comments Primary cancer of skin of thigh 2014 Smoking Family History Medical History Relation Name Comments Heart disease Father pacemaker Hypertension Father Breast cancer Father's Sister onset late 60s/early 70s Hypertension Mother Relation Name Status Comments Father Father's Sister Mother Social History Tobacco Use Types Packs/Day Years [...] on file Legal Sex Female 12:45 AM EX CHEF Gender Identity Not on file Sexual Orientation Not on file Occupation Industry Job Start Date Job End Date Retired Not on file Not on file Not on file Obstetrics History Para Term AB IAB SAB Ectopic Multiple Livin g Live Births 1 02 10 1 1 Date Outcome GA Total Labor Labor/2nd/3rd Weight Sex Type Anes PTL Tereza A1 A5 Name Clin 1987 Term 3.487 kg (7 lb 11 oz) F CS-LT ranv Living Last Filed Vital Signs Vital Sign Reading [...] 08/20/2024 9:53 AM CDT Plan of Treatment Health Maintenance Due Date Last Done Comments Covid-19 Vaccine ( season) 2023 12/23/2020, 05/17/2020, 04/19/2020 Cervical Cancer Screening 04/22/2024 04/23/2023, Influenza Vaccine (#1) 2024 , 12/15/2022, 01/27/2022, Additional history exists Breast Cancer Screening-Mammogram 01/16/2025 01/17/2024, 12/07/2022, 11/10/2021, Additional history exists Regular Well Visit/Exam 18-64 06/16/2025 06/16/2024, 10/27/2023, 04/23/2023, Additional history exists Depression Screening 08/20/2025 08/20/2024, 06/28/2024, 10/27/2023, Additional history exists DTaP/Tdap/Td Vaccine (2 - Td or Tdap) 10/09/2031 10/08/2021 Colon Cancer Screening-Colonoscopy 09/16/2032 09/16/2022, 06/23/2017, 03/23/2012 Hepatitis C Screening Completed 08/12/2016 Zoster Vaccine Completed 04/01/2020, 01/15/2020 Colon Cancer Screening-CT Colonography Discontinued 09/16/2022, 06/23/2017, 03/23/2012 Colon Cancer Screening-DNA Stool Discontinued 09/16/2022, 06/23/2017, 03/23/2012 Colon Cancer Screening-FIT Discontinued 09/16, 06/23/2017, 03/23/2012 Colon Cancer Screening-Sigmoidoscopy Discontinued 09/16/2022, 06/23/2017, 03/23/2012 Hepatitis B Screening Completed 10/27/2023 Pneumococcal vaccine <65 Aged Out No longer eligible based on patient's age to complete this topic Procedures Procedure Name Priority Date/Time Associated Diagnosis Comments SCREENING MAMMOGRAM BILATERAL W BRYAN Schedule Routine, Read Routine (OP Routine) 01/17/2024 7:51 AM EX CHEF Screening mammogram, encounter for PAP AND HIGH RISK HPV, REFLEX TO GENOTYPING Routine 04/23/2023 8:35 AM CDT Screening for malignant neoplasm of the cervix COLONOSCOPY 09/16/2022 8:31 AM CDT HEPATITIS C ANTIBODY Routine 08/12/2016 9:30 AM CDT from Last 3 Months or Most Recently Relevant to Health Maintenance Results * Screening Mammogram Bilateral W Bryan (01/17/2024 7:51 AM EX CHEF) Anatomical Region Laterality Modality Breast Bilateral Mammography 01/18/2024 8:56 PM EX CHEF Impressions 01/18/2024 8:56 PM EX CHEF There is no mammographic evidence of malignancy. A 1 year screening mammogram is recommended. BI-RADS: 2 - Benign. The patient has been or will be contacted. The patient will be entered into a reminder system with a target due date of 1 year for her next mammogram. Electronically signed by: Chrissy Martinez M.D. Narrative 01/18/2024 8:56 PM EX CHEF EXAMINATION: SCREENING MAMMOGRAM BILATERAL W BRYAN ORDERING [...] PATHOLOGY CH - 04/25/2023 2:27 PM CDT [facility] Department of Pathology [address] [place] [address] Final Report with Addendum Note to Patients: [...] the details. Patient Name: KALEIGH BUCKLEY Address: [address] [place] [address]- Gender: F : 1960 (Age: 62) Service: Location: N : [id number] [facility] #: [id number] Patient Type: SPECIMEN Taken: 04/23/2023 Received: 04/23/2023 [...] this test have been verified by the [facility] Molecular Infectious Disease laboratory. Correlate with reported [...] determined by the Surgical Pathology Department at [facility] as part of an ongoing quality engineering manager program and in compliance with federally mandated [...] characteristics determined by the Surgical Pathology Department [facility]. It has not been cleared or approved by the U. S. Food and Drug Administration. us Deborah Andrade MD LAB CYTOLOGY [place] [address] [place] [address] * COLONOSCOPY (09/16/2022 8:31 AM CDT) Anatomical Region Laterality Modality Other Narrative Procedure Note Bryce Springer MD - 09/16/2022 8:31 AM CDT [facility] Patient Name: Kaleigh Buckley Procedure Date: 09/16/2022 8:31 AM Date of : 1960 Admit Type: Outpatient Age: 62 Gender: Female Attending MD: Bryce Springer M.D. Room: [facility]COPY ROOM 2 Note Status: Finalized Patient [...] scope was passed under direct vision. TheColonoscope [id number] was introduced through the anus and advanced [...] 8:31 AM Procedure Code(s): --- Professional --- 78511, Colonoscopy, flexible; with removal of tumor(s), polyp(s), or other lesion(s) by snare technique --- Technical --- 41522, Colonoscopy, flexible; with removal of tumor(s), polyp(s), or other lesion(s) by snare technique Diagnosis Code(s): --- Professional --- D12.5, Benign neoplasm of sigmoid colon K64.9, Unspecified hemorrhoids Z86.010, Personal history of colonic polyps --- Technical --- D12.5, Benign neoplasm of sigmoid colon K64.9, Unspecified hemorrhoids Z86.010, Personal history of colonic polyps CPT copyright 2020 [employer]. All rights reserved. The codes documented in this report are preliminary and upon certified coder reviewmay be revised to meet current compliance requirements. Recognized by the [employer] for promoting quality in endoscopy us Bryce Springer MD ENDOSCOPY PROCEDURES Final Re sult * Hepatitis C antibody (08/12/2016 9:30 AM CDT) Hep C Ab Negative Negative ROSA COLINDRES Blood specimen (specimen) 08/12/2016 9:30 AM CDT 08/12/2016 4:00 PM CDT Vince Vargas MD LAB MICROBIOLOGY - GENERAL ORDERABLES Edited Result - Final ROSA [id number] [facility] [place] [address] from Last 3 Months or Most Recently Relevant to Health Maintenance Insurance [facility] [place] [address] [facility] CHO[facility] PLUS [facility] PL[facility] Advance Directives For more information, please contact: [phone] * Full Code (Latest Code Status on File) Date Activated Date Inactivated Comments 09/16/2022 8:50 AM 09/16/2022 3:18 PM * Full Code Date Activated Date Inactivated Comments 09/16/2022 8:50 AM 09/16/2022 8:50 AM * Full Code Date Activated Date Inactivated Comments 06/23/2017 9:29 AM 06/23/2017 2:00 PM Care Teams Instrument Operator Relationship Specialty Start Date End Date Vince Vargas MD PCP - General 09/22/07 Deborah Andrade MD [address] [place] [address] Rail Switchman Obstetrics and Gynecology 11/10/21
--- OUTSIDE RECORDS SUMMARY | 2024-09-12 14:21 | XMS_ITS | Continuity of Care Document ---
Author Organization [facility] [place] Address [address] [place] [address] Phone Care Team Providers Care Strategic Planning Specialist Name Role Phone Bella Rubin PIPER Unavailable Unavailable Procedures Procedure Date Manual Therapy Neuromuscular Re-Ed Therapeutic Activities Progress Note Therapeutic Exercise Therapeutic Activities Neuromuscular Re-Ed Therapeutic Exercise Manual Therapy Therapeutic Exercise Hot or Cold Pack Neuromuscular Re-Ed Therapeutic Activities Manual Therapy Therapeutic Exercise Therapeutic Activities Neuromuscular Re-Ed Manual Therapy Therapeutic Activities Therapeutic Exercise Manual Therapy Hot or Cold Pack Therapeutic Activities Neuromuscular Re-Ed Therapeutic Exercise Manual Therapy Manual Therapy Therapeutic Exercise Therapeutic Activities Therapeutic Exercise Manual Therapy PT Evaluation Low Complexity Therapeutic Exercise Manual [...] Diagnoses Date Provider Providers Copied on Encounter [facility], [id number], tel:[phone] [place] No Information 1 Bella Rubin. . [facility], [id number], tel:[phone] [place] No Information 1 Bella Rubin. . [facility], [id number], tel:[phone] [place] No Information 1 Bella Rubin. . [facility] [place] [address], [id number], tel:[phone] [place] No Information 1 Michael Moyer. [address] [facility], [address], [address], . tel:[phone] [facility], [id number], tel:[phone] [place] No Information 1 Bella Rubin. . [facility] [place] [address], [id number], tel:[phone] [place] No Information 1 Michael Moyer. [address] [place] [address], [address], [place], [place], [facility], [place]. tel: [phone] [address], [place], [place], [id number], tel:[phone] [place] No Information June- 1 Michael Moyer. [address] [place] [address], [address], [place], [place], [facility], [place]. tel: [phone] [address], [place], [place], [id number], [place] tel:[phone] [place] No Information June-2 0 1 Bella Rubin. . [address], [place], [place], [id number], tel:[phone] [place] No Information 1 Michael Moyer. [address] [place] [address], [address], [place], [place], [facility], [place]. tel: [phone] [address], [place], [place], [id number], [place] tel:[phone] [place] No Information 1 Bella Rubin. . [facility] [address], [place], [place], [id number], [place] tel:[phone] [place] No Information 7 Richie Bravo. [address] [place] [address], [address], [place], [place], [facility], [place]. tel: [phone] [address], [place], [place], [id number], [place] tel:[phone] [place] No Information 7 Richie davidson Lawrence. [address] [place] [address], [address], [place], [place], [facility], [place]. tel: [phone] [address], [place], [place], [id number], [place] tel:[phone] [place] No Information 2 0 7 Escobar-Ronan es Lawrence. [address] [place] [address], [address], [place], [facility], . tel: [phone] [facility] [address] [place] [address] [address], [place], [place], [id number], tel:[phone] [place] No Information 0 6 7 Escobar-Ronan es Lawrence. [address] [place] [address], [facility] [address] [address], . tel: [phone] [address], [place], [place], [id number], tel:[phone] [place] No Information Apr-3 7 Escobar-Ronan es Lawrence. [address] [place] [address], [facility] [address] [address], . tel: [phone] [facility] [address] [place] [address], [place], [place], [id number], tel:[phone] [place] Pelvic and perineal painMuscle weakness (generalized)Urge incontinenceStress incontinence (female) (male)Unspecified dyspareunia 3 7 Escobar-Ronan es Lawrence. [address] [place] [address], [facility] [address] [address], . tel: [phone] Family History Family Member Type Diagnosis Age At Onset No Information Payers Payer name Insurance type Covered libertarian ID Idris melvin(s) [facility] CI [id number] Social History Type Description Quantity Date Captured [...]
[2024-09-12 14:22] VITALS: BP 163/70; PULSE 59; RESP 20; TEMP 37.2; O2SAT 100
--- NOTE | 2024-09-12 15:15 | ED_ITS ---
HPI - General Adult General Chief complaint: Extremity Injury, Lower Stated complaint: Left Foot Injury Source: patient Mode of arrival: ambulatory Limitations: no limitations History of Present Illness HPI narrative: Pt presents for evaluation of left foot pain and swelling. She states she first had pain in the left great toe with radiation into the first metatarsal on 08/24/24. She denies precipitating injury. She had been walking but does not remember any specific movement that induced her symptoms. The following day pain radiated across the left foot through the 2nd-5th metatarsals. She has since developed swelling in the left foot. She denies considerable pain but with weight-bearing and walking her pain level increases to 8/10. She has tried taking ibuprofen for her symptoms. She is under the care of dermatology for an area of hyperpigmentation to the medial aspect of the left ankle. She has been using a steroid cream as directed by dermatology. Today she noted some redness in the area of hyperpigmentation that she attributes to application of a lotion in that area. Related Data Home Medications ?Medication ?Instructions ?Recorded ?Confirmed ?Last Taken ?Type rosuvastatin 10 mg tablet 10 mg PO DAILY 12/20/21 08/21/22 Unknown History Allergies Allergy/AdvReac Type Severity Reaction Status Date / Time bacitracin (From Neosporin Allergy Intermediate Rash Verified 09/12/24 14:21 ([id number])) neomycin (From Neosporin Allergy Intermediate Rash Verified 09/12/24 14:21 ([id number])) Penicillins Allergy Intermediate Hives Verified 09/12/24 14:21 polymyxin B (From Neosporin Allergy Intermediate Rash Verified 09/12/24 14:21 ([id number])) Review of Systems Review of Systems: CONSTITUTIONAL: Denies fever, chills, or sweats. EYES: Denies visual changes, redness, or discharge. ENT: Denies rhinorrhea, congestion, sore throat, or otalgia. CARDIOVASCULAR: Denies chest pain, palpitations, or edema. RESPIRATORY: Denies cough or dyspnea. GASTROINTESTINAL: Denies abdominal pain, nausea, vomiting, or diarrhea. GENITOURINARY: Denies dysuria or hematuria. SKIN: Reports area of hyperpigmentation to the medial aspect of the left ankle with associated redness MUSCULOSKELETAL: Reports swelling in the left ankle and foot. Reports pain in left foot. NEUROLOGIC: Denies headache, numbness, dizziness, or weakness. PSYCHIATRIC: Denies anxiety or depression. [facility] Past Medical History Medical History Hypertension Surgical History Surgical History H/O breast biopsy Family History Family History Mother Family history non-contributory Social History Social History Smoking status: Never smoker Substance use: never Gender identity (if verbalized by the patient): Female Spiritual care concerns: No Exam Narrative: GENERAL: Well-appearing, well-nourished, and in no acute distress. HEAD: Normocephalic, atraumatic. EYES: PERRLA and EOMI. ENT: Nares clear, no rhinorrhea or epistaxis. Mucous membranes moist. Oropharynx without tonsillar hypertrophy exudate or other lesions. Bilateral T Ms pearly bear nonbulging NECK: Supple. No adenopathy or masses. No carotid bruits or JVD CHEST: Clear to auscultation. No respiratory distress. No wheezes rales or rhonchi HEART: Regular rate and rhythm. No murmur heard. Normal peripheral pulses. ABDOMEN: Soft, nontender, nondistended, normal active bowel sounds. EXTREMITIES: Normal range of motion. There is tenderness over the dorsal aspect of the distal metatarsals of the left foot. 1+ pitting edema noted to the left foot and ankle SKIN: There is hyperpigmentation and erythema noted to the medial aspect of the left ankle NEURO: No focal deficits. Alert and oriented x3. PSYCH: Normal mood and affect. Course Course Emergency Course: This is a 64-year-old female who presented for evaluation of pain and swelling in the left foot. X-rays of left foot and ankle were negative. Is not fully clear whether her skin abnormalities related to her swelling. She has not had improvement with application of steroid cream. Advise she follow up with primary care and Dermatology. I provided her with contact information for Podiatry to follow up on her pain and swelling in the left foot. She has no swelling or pain in the calf to suggest DVT. She was provided with post-op shoe. She has been taking 400 mg of ibuprofen home for pain and swelling. She may continue to do so or increase the dose to 100 mg 3 times a day as needed. She should go to the emergency department for intractable pain or swelling. Patient in agreement with plan of care. Level of Care: Express Care Visit Vital Signs Vital signs: Vital Signs Temperature 37.2 C 09/12/24 14:22 Pulse Rate 59 L 09/12/24 14:22 Respiratory Rate 20 09/12/24 14:22 Blood Pressure 163/70 H 09/12/24 14:22 Pulse Oximetry 100 09/12/24 14:22 Oxygen Delivery Room Air 09/12/24 14:22 Temperature 37.2 C 09/12/24 14:22 Pulse Rate 59 L 09/12/24 14:22 Respiratory Rate 20 09/12/24 14:22 Blood Pressure 163/70 H 09/12/24 14:22 Pulse Oximetry 100 09/12/24 14:22 Oxygen Delivery Room Air 09/12/24 14:22 stems Medical Decision Making Vital Signs Vital Signs: Vital Signs Temperature 37.2 C 09/12/24 14:22 Pulse Rate 59 L 09/12/24 14:22 Respiratory Rate 20 09/12/24 14:22 Blood Pressure 163/70 H 09/12/24 14:22 Pulse Oximetry 100 09/12/24 14:22 Oxygen Delivery Room Air 09/12/24 14:22 Temperature 37.2 C 09/12/24 14:22 Pulse Rate 59 L 09/12/24 14:22 Respiratory Rate 09/12/24 14:22 Blood Pressure 163/70 H 09/12/24 14:22 Pulse Oximetry 100 09/12/24 14:22 Oxygen Delivery Room Air 09/12/24 14:22 Imaging Data Radiologist's impression: EXAM: XR foot LT min 3V DATE: 09/12/2024 15:18 HISTORY: forefoot pain and swelling after walking . COMPARISON: None available. FINDINGS: Osteopenia. No fracture or dislocation. No lytic or blastic lesion. Joint spaces are maintained. No erosion or periosteal change. Ankle soft tissue swelling. IMPRESSION: No acute osseous finding in the left ankle or left foot. Procedure(s): XR ankle LT min 3V Accession Number(s): [id number] cc: Khari, Vince Dallas; Tobin Stoll [employer] FI[employer] REPRESENTATIVE~ EXAM: XR ankle LT min 3V DATE: 09/12/2024 15:18 HISTORY: left lat ankle swelling, HX OF LOWER LAT LEG LESION . COMPARISON: None available. FINDINGS: Osteopenia. No fracture or dislocation. No lytic or blastic lesion. Joint spaces are maintained. No erosion or periosteal change. Ankle soft tissue swelling. IMPRESSION: No acute osseous finding in the left ankle or left foot. Discharge Plan Discharge Clinical Impression: Arthralgia of foot, left Patient Disposition: Home Condition: Stable Instructions: Antibiotic Form, Arthralgia (ED) Additional Instructions: You may take ibuprofen as needed for pain and swelling. If you developed pain in the calf, please go to the emergency department. Follow-up with podiatry Patient Language: Icelandic Prescriptions: No Action rosuvastatin 10 mg tablet 10 mg PO DAILY Follow-up/Referrals: Khari,Vince Dallas MD [Primary Care Provider] - [facility],Dread Jones DPM [Non-Staff] - Time of Disposition: 16:26
== END 2024-09-12 16:30 | disposition home or self-care (01) ==
PROVIDERS: Emergency Provider Nurse Practitioner; PCP Internal Medicine
DX: M25.572 Pain in left ankle and joints of left foot (principal); I10 Essential (primary) hypertension
CPT/HCPCS: 73610; 73630; 99213; G0463